=== PATIENT | female | born 1985 | race Native Hawaiian/Other Pacific Islander ===

== ENCOUNTER 2020-10-12 00:35 | Emergency (ER) | payer BC ==
[~2020-10-12] VITALS: Ht 154.9 cm; Wt 81.8 kg
[2020-10-12 01:33] LABS: BASO % 0.4 % (0.0-2.0); EOS # 0.3 (0.0-0.7); EOS % 2.3 % (0-4.0); GRAN # 6.9 (1.4-6.5); HEMATOCRIT 42.5 % (37.0-47.0); HEMOGLOBIN 15.1 g/dl (12.5-16.0); LYMPH # 3.4 (1.2-3.4); LYMPH % 30.1 % (20.0-51.0); MEAN CELL VOLUME 88 fl (80.0-100.0); MEAN CORPUSCULAR HEMOGLOBIN 31 pg (27.0-31.0); MEAN CORPUSCULAR HGB CONC 36 g/dl (33.0-37.0); MEAN PLATELET VOLUME 10.3 fl (7.4-10.4); MONO # 0.7 (0.1-0.6); MONO % 5.9 % (1.7-9.3); PLATELET COUNT 366 K/mm3 (130-400); RED BLOOD COUNT 4.83 M/mm3 (4.10-5.30); REDCELL DISTRIBUTION WIDTH-CV 11.6 % (11.5-14.5)
[2020-10-12 01:41] LABS: PROTHROMBIN TIME 10.5 SECONDS (9.7-12.8)
[2020-10-12 01:45] LABS: ALANINE AMINOTRANSFERASE 22 U/L (4-34); ALBUMIN 4.2 gm/dL (3.5-5.0); ALKALINE PHOSPHATASE 95 U/L (50-136); ANION GAP 9 mmol/L (7-16); AST,SGOT 29 U/L (15-37); BILIRUBIN,TOTAL 0.2 mg/dL (0.0-1.0); BLOOD UREA NITROGEN 19 mg/dL (7-17); CALCIUM 9.7 mg/dL (8.4-10.2); CARBON DIOXIDE 25 mmol/L (22-30); CHLORIDE 100 mmol/L (98-107); CREATININE, serum 0.39 (0.52-1.25); GLUCOSE 350 mg/dL (74-106); POTASSIUM 3.6 mmol/L (3.4-5.0); SODIUM 134 mmol/L (137-145); TOTAL PROTEIN 8.3 gm/dL (6.4-8.2)
[2020-10-12 01:46] LABS: ACETAMINOPHEN < 10 ug/mL (10-30); ALCOHOL(ethanol),MEDICAL < 10 mg/dL; SALICYLATE < 1.0 mg/dL
[2020-10-12 04:33] LABS: COLLECTION METHOD CLEAN CATCH
[2020-10-12 04:41] LABS: MUCOUS Present /lpf; PH 5 (5-8); URINE APPEARANCE Hazy; URINE BACTERIA Rare /hpf; URINE BILIRUBIN Negative (NEGATIVE); URINE BLOOD 2+ (NEGATIVE); URINE COLOR Yellow; URINE GLUCOSE 3+ (NEGATIVE); URINE KETONE Negative (NEGATIVE); URINE LEUKOCYTE ESTERASE Trace (NEGATIVE); URINE NITRATE Positive (NEGATIVE); URINE PROTEIN(semi-quant) 2+ (NEGATIVE); URINE UROBILINOGEN Negative (NEGATIVE)
[2020-10-12 04:47] LABS: TRICYCLIC ANTIDEPRESS URINE NEGATIVE
[2020-10-12 05:00] VITALS: TEMP 98.3
[2020-10-12] MEDS ORDERED: CEPHALEXIN500 M1 PO (05:21)
[2020-10-12 06:25] VITALS: BP 113/76; PULSE 85
== END 2020-10-12 06:25 | disposition home or self-care (01) ==
LOC: COL.ER 00:35
PROVIDERS: Emergency Medicine
DX: T39.1X2A Poisoning by 4-Aminophenol derivatives, intentional self-harm, initial encounter (principal); N39.0 Urinary tract infection, site not specified; E11.9 Type 2 diabetes mellitus without complications; X83.8XXA Intentional self-harm by other specified means, initial encounter
CPT/HCPCS: J2405; J7030

== ENCOUNTER 2021-01-13 15:28 | Emergency (ER) | payer BC ==
[~2021-01-13] VITALS: Ht 152.4 cm; Wt 80.9 kg
[~2021-01-13 15:28] MED LIST: CEPHALEXIN500 M1 PO
[2021-01-13 15:59] LABS: COLLECTION METHOD CLEAN CATCH
[2021-01-13 16:07] LABS: BASO % 0.4 % (0.0-2.0); EOS # 0.3 (0.0-0.7); EOS % 2.9 % (0-4.0); GRAN # 4.6 (1.4-6.5); GRAN % 54.4 % (42.2-75.2); HEMATOCRIT 38.4 % (37.0-47.0); LYMPH % 35.1 % (20.0-51.0); MEAN CELL VOLUME 87 fl (80.0-100.0); MEAN CORPUSCULAR HEMOGLOBIN 32 pg (27.0-31.0); MEAN CORPUSCULAR HGB CONC 37 g/dl (33.0-37.0); MEAN PLATELET VOLUME 10.8 fl (7.4-10.4); MONO # 0.6 (0.1-0.6); PLATELET COUNT 373 K/mm3 (130-400); RED BLOOD COUNT 4.43 M/mm3 (4.10-5.30); REDCELL DISTRIBUTION WIDTH-CV 11.4 % (11.5-14.5)
[2021-01-13 16:15] LABS: PH 7 (5-8); URINE APPEARANCE Clear; URINE BACTERIA Rare /hpf; URINE BILIRUBIN Negative (NEGATIVE); URINE BLOOD 1+ (NEGATIVE); URINE COLOR Straw; URINE GLUCOSE 3+ (NEGATIVE); URINE KETONE Negative (NEGATIVE); URINE LEUKOCYTE ESTERASE Trace (NEGATIVE); URINE NITRATE Negative (NEGATIVE); URINE PROTEIN(semi-quant) 2+ (NEGATIVE); URINE RBC 0-2 /hpf; URINE UROBILINOGEN Negative (NEGATIVE)
[2021-01-13 16:28] LABS: ALANINE AMINOTRANSFERASE 21 U/L (4-34); ALKALINE PHOSPHATASE 104 U/L (50-136); ANION GAP 10 mmol/L (7-16); AST,SGOT 28 U/L (15-37); BILIRUBIN,TOTAL 0.3 mg/dL (0.0-1.0); BLOOD UREA NITROGEN 7 mg/dL (7-17); CARBON DIOXIDE 24 mmol/L (22-30); CHLORIDE 97 mmol/L (98-107); CREATININE, serum 0.38 (0.52-1.25); LIPASE 191 U/L (23-300); POTASSIUM 3.9 mmol/L (3.4-5.0); SODIUM 132 mmol/L (137-145); TOTAL PROTEIN 7.8 gm/dL (6.4-8.2)
[2021-01-13 16:29] LABS: GLUCOSE 433 mg/dL (74-106)
[2021-01-13 16:35] LABS: ACETONE,SERUM NEGATIVE
[2021-01-13] MEDS ORDERED: CEPHALEXIN500 M1 PO (17:25)
[2021-01-13 17:55] VITALS: BP 129/91; PULSE 90; TEMP 97.6
--- NOTE | 2021-01-17 14:21 | NUR ---
Cloth Weaver attempted contact with patient by phone, however her voicemail box is not set up so SW was unable to leave a message.
== END 2021-01-13 17:55 | disposition home or self-care (01) ==
LOC: COL.ER 15:28
PROVIDERS: Physician Assistant
DX: E11.65 Type 2 diabetes mellitus with hyperglycemia (principal); E11.00 Type 2 diabetes mellitus with hyperosmolarity without nonketotic hyperglycemic-hyperosmolar coma (NKHHC); N39.0 Urinary tract infection, site not specified; Z20.822 Contact with and (suspected) exposure to COVID-19
CPT/HCPCS: J1815; J7030

== ENCOUNTER 2022-07-25 17:14 | Emergency (ER) | payer OTHER ==
[~2022-07-25] VITALS: Ht 154.9 cm; Wt 85.9 kg
[2022-07-25 17:19] VITALS: TEMP 98.3
[2022-07-25 18:09] LABS: BASO % 0.4 % (0.0-2.0); EOS # 0.2 K/mm3 (0.0-0.7); EOS % 2.1 % (0.0-4.0); GRAN # 6.8 K/mm3 (1.4-6.5); GRAN % 60.2 % (42.2-75.2); HEMOGLOBIN 12.7 g/dl (12.5-16.0); LYMPH # 3.4 K/mm3 (1.2-3.4); LYMPH % 29.7 % (20.0-51.0); MEAN CELL VOLUME 88 fl (80.0-100.0); MEAN CORPUSCULAR HEMOGLOBIN 31 pg (27-31); MEAN CORPUSCULAR HGB CONC 35 g/dl (33.0-37.0); MEAN PLATELET VOLUME 10.5 fl (7.4-10.4); MONO # 0.8 K/mm3 (0.1-0.6); MONO % 7.2 % (1.7-9.3); PLATELET COUNT 381 K/mm3 (130-400); REDCELL DISTRIBUTION WIDTH-CV 11.5 % (11.5-14.5)
[2022-07-25 18:12] LABS: HEMATOCRIT 36.1 % (37.0-47.0)
[2022-07-25 18:17] LABS: ACETONE,SERUM NEGATIVE
[2022-07-25 18:29] LABS: COLLECTION METHOD CLEAN CATCH
[2022-07-25 18:33] LABS: ALANINE AMINOTRANSFERASE 13 U/L (0-55); ALBUMIN 2.9 gm/dL (3.5-5.0); ALKALINE PHOSPHATASE 86 U/L (40-150); ANION GAP 11 mmol/L (7-16); AST,SGOT 10 U/L (5-34); BILIRUBIN,TOTAL 0.2 mg/dL (0.2-1.2); BLOOD UREA NITROGEN 13 mg/dL (7-19); CALCIUM 9.5 mg/dL (8.4-10.2); CARBON DIOXIDE 22 mmol/L (22-29); CHLORIDE 99 mmol/L (98-107); CREATININE, serum 0.79 mg/dL (0.57-1.11); GLUCOSE 358 mg/dL (70-99); POTASSIUM 3.9 mmol/L (3.5-4.5); SODIUM 132 mmol/L (136-145); TOTAL PROTEIN 7.5 gm/dL (6.2-8.1)
[2022-07-25 18:34] LABS: PH 5.5 (5.0-8.5); URINE APPEARANCE Cloudy (CLEAR/HAZY); URINE COLOR Yellow (YELLOW); URINE GLUCOSE 3+ (NEGATIVE); URINE KETONE Negative (NEGATIVE); URINE NITRATE Positive (NEGATIVE); URINE PROTEIN(semi-quant) 3+ (NEGATIVE); URINE UROBILINOGEN 0.2 E.U/dL (0.2-1.0)
[2022-07-25 18:35] LABS: URINE BLOOD 2+ (NEGATIVE)
[2022-07-25 19:03] LABS: MUCOUS Present (NOT PRESENT); URINE BACTERIA Rare /hpf (NONE SEEN)
[2022-07-25] MEDS ORDERED: CEFTIN 250250 MG/TAB PO (20:12)
[2022-07-25] MEDS ORDERED: GLUCOPHAGE850 MG/TAB PO (20:12)
[2022-07-25 20:26] VITALS: BP 122/76; PULSE 85
[2022-07-25] MEDS ORDERED: FREESTYLE PREC1 EAC5 MC (20:29)
== END 2022-07-25 20:26 | disposition home or self-care (01) ==
LOC: COL.ER 17:14
PROVIDERS: Family Medicine
DX: M79.671 Pain in right foot (principal); M79.89 Other specified soft tissue disorders; E11.9 Type 2 diabetes mellitus without complications; Z87.891 Personal history of nicotine dependence; Z28.310 Unvaccinated for COVID-19; Z91.138 Patient's unintentional underdosing of medication regimen for other reason
CPT/HCPCS: J1815; J7030

== ENCOUNTER 2022-07-30 15:07 | Emergency (ER) | payer OTHER ==
[~2022-07-30] VITALS: Ht 154.9 cm; Wt 85.9 kg
[~2022-07-30 15:07] MED LIST changes: +CEFTIN 250250 MG/TAB PO; +FREESTYLE PREC1 EAC5 MC; +GLUCOPHAGE850 MG/TAB PO
[2022-07-30 15:30] VITALS: TEMP 98.4
[2022-07-30 17:24] LABS: BASO # 0.1 K/mm3 (0.0-0.2); BASO % 0.5 % (0.0-2.0); EOS # 0.2 K/mm3 (0.0-0.7); EOS % 1.1 % (0.0-4.0); GRAN # 11.9 K/mm3 (1.4-6.5); GRAN % 74.4 % (42.2-75.2); HEMATOCRIT 40.8 % (37.0-47.0); HEMOGLOBIN 13.9 g/dl (12.5-16.0); LYMPH # 2.9 K/mm3 (1.2-3.4); LYMPH % 17.9 % (20.0-51.0); MEAN CELL VOLUME 88 fl (80.0-100.0); MEAN CORPUSCULAR HEMOGLOBIN 30 pg (27-31); MEAN CORPUSCULAR HGB CONC 34 g/dl (33.0-37.0); MEAN PLATELET VOLUME 10.6 fl (7.4-10.4); MONO # 0.9 K/mm3 (0.1-0.6); MONO % 5.6 % (1.7-9.3); PLATELET COUNT 430 K/mm3 (130-400); RED BLOOD COUNT 4.62 M/mm3 (4.10-5.30); REDCELL DISTRIBUTION WIDTH-CV 11.4 % (11.5-14.5)
[2022-07-30 17:37] LABS: ALBUMIN 2.9 gm/dL (3.5-5.0); BILIRUBIN,TOTAL 0.2 mg/dL (0.2-1.2); C-REACTIVE PROTEIN 8.33 mg/dL (0.00-0.50); CALCIUM 10.6 mg/dL (8.4-10.2); CREATININE, serum 0.76 mg/dL (0.57-1.11); POTASSIUM 4.2 mmol/L (3.5-4.5); TOTAL PROTEIN 8.4 gm/dL (6.2-8.1)
[2022-07-30] MEDS ORDERED: GLUCOSE TEST ST1 DEV MC (18:05)
[2022-07-30] MEDS ORDERED: BACTRIM DS 8001 TAB PO (18:07)
[2022-07-30 18:24] VITALS: BP 118/70; PULSE 94
== END 2022-07-30 18:24 | disposition home or self-care (01) ==
LOC: COL.ER 15:07
PROVIDERS: Nurse Practitioner Family
DX: E11.9 Type 2 diabetes mellitus without complications (principal); L03.115 Cellulitis of right lower limb; N39.0 Urinary tract infection, site not specified; Z79.84 Long term (current) use of oral hypoglycemic drugs; Z28.310 Unvaccinated for COVID-19

== ENCOUNTER 2022-08-05 14:50 | Inpatient (IN) | payer OTHER ==
[~2022-08-05] VITALS: Ht 152.4 cm; Wt 76.5 kg
[~2022-08-05 14:50] MED LIST changes: +BACTRIM DS 8001 TAB PO; +GLUCOSE TEST ST1 DEV MC
[2022-08-05 16:10] LABS: HEMOGLOBIN 11.9 g/dl (12.5-16.0); MEAN CELL VOLUME 87 fl (80.0-100.0); MEAN CORPUSCULAR HEMOGLOBIN 30 pg (27-31); MEAN CORPUSCULAR HGB CONC 35 g/dl (33.0-37.0); MEAN PLATELET VOLUME 10.9 fl (7.4-10.4); PLATELET COUNT 448 K/mm3 (130-400); RED BLOOD COUNT 3.92 M/mm3 (4.10-5.30); REDCELL DISTRIBUTION WIDTH-CV 11.2 % (11.5-14.5)
[2022-08-05 16:11] LABS: HEMATOCRIT 34.1 % (37.0-47.0)
[2022-08-05 16:28] LABS: ALBUMIN 2.5 gm/dL (3.5-5.0); BILIRUBIN,TOTAL 0.4 mg/dL (0.2-1.2); C-REACTIVE PROTEIN 13.95 mg/dL (0.00-0.50); CALCIUM 9.8 mg/dL (8.4-10.2); CREATININE, serum 0.99 mg/dL (0.57-1.11); POTASSIUM 4.1 mmol/L (3.5-4.5); TOTAL PROTEIN 8.5 gm/dL (6.2-8.1)
[2022-08-05 16:34] LABS: ERYTHROCYTE SEDIMENTATION RATE > 140 mm/hr (0-20)
[2022-08-05 16:53] LABS: BAND 11 % (0-10); LYMPHOCYTE 11 % (20.0-51.0); NEUTROPHILS 72 % (42.0-75.2)
[2022-08-05 16:54] LABS: PLATELET ESTIMATE INCREASED (NORMAL)
[2022-08-05 16:55] LABS: ANISOCYTOSIS 1+
--- NOTE | 2022-08-05 19:13 | NUR ---
RECEIVED REPORT FROM Dakotah IZAGUIRRE, DARLINE. WAITING FOR PATIENT ARRIVAL TO UNIT FOR ADMIT TO ROOM 342.
--- NOTE | 2022-08-05 20:04 | NUR ---
PATIENT TO ROOM FROM E.D. TRANSPORTED BY E.DLogan TECH. PATIENT'S SPOUSE AT BEDSIDE.
[2022-08-05 20:14] VITALS: BP 122/62; PULSE 91; TEMP 98.6
[2022-08-05] MEDS ORDERED: ADVIL200 MG PO (20:21)
[2022-08-05 23:53] VITALS: BP 135/52; PULSE 102; TEMP 97.6
[2022-08-06] VITALS (7 sets, daily range): BP systolic 97–126; BP diastolic 43–63; PULSE 75–97; TEMP 97.7–101
--- NOTE | 2022-08-06 06:45 | NUR ---
PT RESTING IN BED. PT HAS IVF RUNNING. PT DENIES NEEDS AT THIS TIME. PT HAS CALL LIGHT AND INSTRUCTED TO CALL WITH ALL NEEDS.
[2022-08-06 07:02] LABS: HEMOGLOBIN 10.3 g/dl (12.5-16.0); MEAN CELL VOLUME 87 fl (80.0-100.0); MEAN CORPUSCULAR HEMOGLOBIN 30 pg (27-31); MEAN CORPUSCULAR HGB CONC 34 g/dl (33.0-37.0); MEAN PLATELET VOLUME 10.8 fl (7.4-10.4); PLATELET COUNT 418 K/mm3 (130-400); RED BLOOD COUNT 3.49 M/mm3 (4.10-5.30)
--- NOTE | 2022-08-06 07:06 | NUR ---
CHANGE OF SHIFT REPORT GIVEN TO DAY SHIFT DANI. DMITRIY
[2022-08-06 07:07] LABS: C-REACTIVE PROTEIN 14.31 mg/dL (0.00-0.50); CREATININE, serum 0.82 mg/dL (0.57-1.11); POTASSIUM 3.8 mmol/L (3.5-4.5)
[2022-08-06 07:10] LABS: HEMATOCRIT 30.4 % (37.0-47.0)
[2022-08-06 07:33] LABS: HEMOGLOBIN A1C 10.1 %
[2022-08-06 08:41] LABS: BAND 17 % (0-10); EOSINOPHIL 2 % (0-4); LYMPHOCYTE 17 % (20.0-51.0); NEUTROPHILS 58 % (42.0-75.2); PLATELET ESTIMATE NORMAL (NORMAL)
--- NOTE | 2022-08-06 08:55 | NUR ---
SW met with the patient to discuss discharge plan. The patient lives in [place] with her , Sara (ph#[phone]). She reports independence with ADLs and does not have any DME. The patient shares that she has not had a PCP, but had an appointment tomorrow at [facility] to establish care. She obtains her medications from [facility] and reports no difficulties obtaining her meds. The patient does not have a DPOA-HC and she was not interested in completing a DPOA-HC at this time. The patient plans to return home with her upon discharge. No additional needs at this time. *Discharge plan: home with *
--- NOTE | 2022-08-06 09:51 | NUR ---
Initial visit; Patient using phone but stopped to talk briefly with Student Life Dean. Student Life Dean offered God's blessings to which her response was positive.
--- NOTE | 2022-08-06 16:12 | NUR ---
PT HAS A TEMP OF 101. P ON UNIT. DISCUSSED PT, NOTIFIED OF EARLIER LOWER BP, AND CURRENT TEMP. ORDERS RECEIVED TO INCREASE FLUIDS AND CHANGE ZOSYN TO 30MIN INSTEAD OF 4 HOUR.
--- NOTE | 2022-08-06 19:19 | NUR ---
pt resting in bed, family at bedside. reports increased pain after showering, tylenol given. encouraged pt to keep foot elevated for swelling. right foot puncture site w no drainage. vss. LR infusing into left ac IV. pt denies needs at this time. call light in reach.
[2022-08-07] VITALS (13 sets, daily range): BP systolic 102–145; BP diastolic 51–66; PULSE 74–101; TEMP 98.4–102.7
[2022-08-07 07:15] LABS: MEAN CELL VOLUME 88 fl (80.0-100.0); MEAN CORPUSCULAR HGB CONC 34 g/dl (33.0-37.0); PLATELET COUNT 389 K/mm3 (130-400); RED BLOOD COUNT 3.25 M/mm3 (4.10-5.30); REDCELL DISTRIBUTION WIDTH-CV 11.1 % (11.5-14.5)
[2022-08-07 07:17] LABS: HEMATOCRIT 28.5 % (37.0-47.0); HEMOGLOBIN 9.8 g/dl (12.5-16.0); MEAN CORPUSCULAR HEMOGLOBIN 30 pg (27-31)
[2022-08-07 07:22] LABS: CALCIUM 8.9 mg/dL (8.4-10.2); CREATININE, serum 0.65 mg/dL (0.57-1.11); POTASSIUM 3.5 mmol/L (3.5-4.5)
[2022-08-07 07:54] LABS: BAND 11 % (0-10); EOSINOPHIL 1 % (0-4); LYMPHOCYTE 11 % (20.0-51.0); NEUTROPHILS 69 % (42.0-75.2)
[2022-08-07 07:55] LABS: PLATELET ESTIMATE NORMAL (NORMAL)
--- NOTE | 2022-08-07 09:55 | NUR ---
Pt. laying in bed. Pt. is A&OX3, assessment complete. IV to lt. ac patent. Pt. denies pain. 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 Pt. denies further needs, call light within reach.
--- NOTE | 2022-08-07 21:35 | NUR ---
pt resting in bed watching tv, states pain is tolerable at the moment. right foot is elevated on pillows, swelling and bruising present. meds given. pt denies needs. call light in reach.
[2022-08-08] VITALS (13 sets, daily range): BP systolic 108–145; BP diastolic 11–64; PULSE 77–98; TEMP 98.4–100.6
[2022-08-08 06:52] LABS: CALCIUM 8.6 mg/dL (8.4-10.2); CREATININE, serum 0.66 mg/dL (0.57-1.11); POTASSIUM 3.4 mmol/L (3.5-4.5)
[2022-08-08 06:54] LABS: MEAN CELL VOLUME 87 fl (80.0-100.0); MEAN CORPUSCULAR HGB CONC 35 g/dl (33.0-37.0); PLATELET COUNT 380 K/mm3 (130-400); RED BLOOD COUNT 2.84 M/mm3 (4.10-5.30)
[2022-08-08 07:14] LABS: HEMATOCRIT 24.7 % (37.0-47.0); HEMOGLOBIN 8.7 g/dl (12.5-16.0); MEAN CORPUSCULAR HEMOGLOBIN 31 pg (27-31)
--- NOTE | 2022-08-08 07:29 | NUR ---
Vancomycin Initial Dosing Pharmacy Note Ordering provider: Kerrie Whitt MD Indication/duration: Sepsis, 5 days LABS: SCr 0.66, CrCl~91, GFR 115 Recommendation: Will start Vancomycin 1 gm IV q8h. Pharmacy will continue to closely monitor and check a trough on 08/10/22. Maintenance dose: 1 gram every 8 hours Trough goal: 15-20 ug/mL
--- NOTE | 2022-08-08 07:43 | NUR ---
Pt resting in lowered bed with call light in reach
[2022-08-08 08:17] LABS: BAND 6 % (0-10); BASOPHIL 1 % (0-2); EOSINOPHIL 2 % (0-4); LYMPHOCYTE 22 % (20.0-51.0); NEUTROPHILS 63 % (42.0-75.2); PLATELET ESTIMATE NORMAL (NORMAL)
--- NOTE | 2022-08-08 11:33 | NUR ---
Primary nurse notifed of temp 100.6 and BP 145/111
--- NOTE | 2022-08-08 12:40 | NUR ---
reassessed after motrin. temp was 99.6 and pt stated pain was 2/10 in her right foot. no longer complaining of chills.
--- NOTE | 2022-08-08 13:35 | NUR ---
Telehealth visit conducted with Dr. Carson Blackman, Infectious Disease. Patient consented to visit. Patient's present. Telecommunication initiated without any difficulties during exam. All questions were answered by Dr. Blackman
--- NOTE | 2022-08-08 20:00 | NUR ---
PT IN BED, HAS RT FOOT ELEVATED ON PILLOWS. HAD ES TYLENOL PREVIOUSLY FOR DISCOMFORT. RT FOOT WITH DIME SIZE WOUND TO PLANTAR PORTION OF FOOT, REDNESS AND SWELLING OF FOOT NOTED. IVF TO LAC INFUSING WITHOUT PROBLEM.
[2022-08-09] VITALS (13 sets, daily range): BP systolic 105–129; BP diastolic 54–64; PULSE 72–85; TEMP 97.9–102
--- NOTE | 2022-08-09 03:22 | NUR ---
PT GIVEN MOTRIN 400MG PO FOR RT FOOT PAIN.
--- NOTE | 2022-08-09 05:10 | NUR ---
PT RESTING IN BED. SPOUSE AT BEDSIDE. NO CONCERNS VOICED AT THIS TIME. LABS DRAWN.
[2022-08-09 07:01] LABS: MEAN CELL VOLUME 89 fl (80.0-100.0); MEAN CORPUSCULAR HGB CONC 34 g/dl (33.0-37.0); MEAN PLATELET VOLUME 10.8 fl (7.4-10.4); PLATELET COUNT 387 K/mm3 (130-400); RED BLOOD COUNT 2.85 M/mm3 (4.10-5.30); REDCELL DISTRIBUTION WIDTH-CV 11.2 % (11.5-14.5)
[2022-08-09 07:03] LABS: CALCIUM 8.3 mg/dL (8.4-10.2); CREATININE, serum 0.73 mg/dL (0.57-1.11); POTASSIUM 3.4 mmol/L (3.5-4.5)
[2022-08-09 07:06] LABS: HEMATOCRIT 25.3 % (37.0-47.0); HEMOGLOBIN 8.5 g/dl (12.5-16.0); MEAN CORPUSCULAR HEMOGLOBIN 30 pg (27-31)
[2022-08-09 08:00] LABS: BAND 10 % (0-10); EOSINOPHIL 1 % (0-4); LYMPHOCYTE 10 % (20.0-51.0); NEUTROPHILS 70 % (42.0-75.2); PLATELET ESTIMATE NORMAL (NORMAL)
--- NOTE | 2022-08-09 08:00 | NUR ---
PATIENT IS A&O. PRIMARY LANGUAGE IS STATELESS HOWEVER, PATIENT AND SPEAK MICRONESIAN WELL. PATIENT DID HAVE QUESTIONS ABOUT WHAT WBC IS AND PLAN, PATIENT AND PROVIDED EDUCATION. VSS. AFEBRILE AT THIS TIME. IV ABX INFUSING VIA PUMP INTO LEFT AC IV PER ORDERS. RLE POSTERIOR PLANTER WOUND, FROM STEPPING ON TOOTH PICK, IS RED/SWOLLEN/THROBS. PATIENT REFUSES WALKING SHOE DUE TO INCREASE PAIN WITH AMBULATION. GAIT SLOW BUT STEADY. RATES PAIN IN RLE AT 2/10 THIS AM. PRN TYLENOL GIVEN WITH AM MEDS PER PATIENT. AM BS WAS 130, NO SSI REQUIRED. HEAD TO TOE ASSESSMENT COMPLETE. NO OTHER NEEDS AT THIS TIME. CALL LIGHT IN REACH.
--- NOTE | 2022-08-09 13:55 | NUR ---
PATIENT OUT OF SHOWER AND SHORTLY AFTER GETTING OUT REPORTED SHE FELT HOT. TEMP OF 102 AND WAS GIVEN PRN MOTRIN. PATIENT IS SHIVERING. AT BEDSIDE. NO C/O PAIN OR N/V.
--- NOTE | 2022-08-09 14:25 | NUR ---
PATIENT STILL SHIVERING, FEBRILE, GAVE PRN TYLENOL. WILL MONITOR
--- NOTE | 2022-08-09 21:45 | NUR ---
PT'S IV SITE TO LAC OUTDATES, NEW #20 INSYTE TO LFA PLACED ON FIRST ATTEMPT, PT TOLERATES WITHOUT PROBLEM. REMOVED LAC SITE, ANGIOCATH INTACT. IV ANTIBIOTIC INFUSING WITHOUT PROBLEM.
--- NOTE | 2022-08-09 23:06 | NUR ---
PT REPORTS FEELING SHORT OF BREATH, BLOATED AND BACK PAIN. QFJ0=066%, ENCOURAGED SLOW DEEP BREATHING. VSS. MEDICATED WITH MOTRIN 400MG PO AT THIS TIME.
[2022-08-10] VITALS (16 sets, daily range): BP systolic 113–159; BP diastolic 57–83; PULSE 77–100; TEMP 97.5–100
--- NOTE | 2022-08-10 06:00 | NUR ---
PT HAS BEEN NPO SINCE MIDNIGHT. NO FURTHER CONCERNS OF SHORTNESS OF BREATH. IVF TO LFA INFUSING WITHOUT PROBLEM.
[2022-08-10 07:18] LABS: MEAN CELL VOLUME 89 fl (80.0-100.0); MEAN CORPUSCULAR HGB CONC 34 g/dl (33.0-37.0); MEAN PLATELET VOLUME 10.2 fl (7.4-10.4); PLATELET COUNT 383 K/mm3 (130-400); RED BLOOD COUNT 2.89 M/mm3 (4.10-5.30); REDCELL DISTRIBUTION WIDTH-CV 11.4 % (11.5-14.5)
[2022-08-10 07:19] LABS: HEMATOCRIT 25.7 % (37.0-47.0); HEMOGLOBIN 8.7 g/dl (12.5-16.0); MEAN CORPUSCULAR HEMOGLOBIN 30 pg (27-31)
[2022-08-10 07:39] LABS: CALCIUM 8.1 mg/dL (8.4-10.2); CREATININE, serum 1.36 mg/dL (0.57-1.11); POTASSIUM 3.5 mmol/L (3.5-4.5)
--- NOTE | 2022-08-10 07:56 | NUR ---
Vancomycin Follow-up Pharmacy Note Current regimen: VANCOMYCIN 1G Q8H Vancomycin trough: 26 Adjustments: SCR INCREASED TO 1.4, CrCl ~45. DECREASE TO VANC 1.25G Q24H STARTING 08/11. TROUGH CLINICALLY INDICATED
[2022-08-10 07:59] LABS: BAND 4 % (0-10); EOSINOPHIL 3 % (0-4); LYMPHOCYTE 15 % (20.0-51.0); NEUTROPHILS 72 % (42.0-75.2); PLATELET ESTIMATE NORMAL (NORMAL)
--- NOTE | 2022-08-10 09:20 | NUR ---
PATIENT BACK IN ROOM FROM OR. VERY DROWSY, ARROUSES BRIEFLY AND THEN FALLS BACK TO SLEEP. VSS. 02 @ 2L PER NC WITH SATS IN MID 90'S. PATIENT APPEARS TO BE COMFORTABLE. DSG TO RLE FOOT IS CD&I WITH ACEWRAP. SCD'S TO BLE. IV ABX INFUSING, SEE MAR. LIQUIDS AT BEDSIDE. HEAD TO TOE ASSESSMENT WNL. GONE AND WILL RETURN LATER. PATIENT RESTING WITH CALL LIGHT IN REACH.
--- NOTE | 2022-08-10 10:30 | NUR ---
PATIENT C/O FEELING COLD AND SHIVERING. NOTED TEMP OF 99.4. GAVE PRN TYLENOL. AT BEDSIDE. ENCOURAGED FLUIDS.
--- NOTE | 2022-08-10 20:34 | NUR ---
PT ASKING FOR MOTRIN. MEDICATED WITH NORCO 1 TAB FOR RT FOOT PAIN. HAS DRSG D/I TO RT FOOT, ELEVATED ON PILLOWS. IVF TO LFA INFUSING WITHOUT PROBLEM. IS ALERT AND ORIENTED X4. SPOUSE AT BEDSIDE.
[2022-08-11] VITALS (12 sets, daily range): BP systolic 118–138; BP diastolic 52–71; PULSE 84–94; TEMP 98.5–99.6
--- NOTE | 2022-08-11 04:00 | NUR ---
IV ANTIBIOTIC CONNECTED. OFFERED PT [place] FOR RT FOOT, DENIES NEED AT THIS TIME.
[2022-08-11 05:57] LABS: MEAN CELL VOLUME 91 fl (80.0-100.0); MEAN CORPUSCULAR HGB CONC 33 g/dl (33.0-37.0); MEAN PLATELET VOLUME 10.2 fl (7.4-10.4); PLATELET COUNT 390 K/mm3 (130-400); RED BLOOD COUNT 2.66 M/mm3 (4.10-5.30); REDCELL DISTRIBUTION WIDTH-CV 11.7 % (11.5-14.5)
[2022-08-11 06:10] LABS: HEMATOCRIT 24.1 % (37.0-47.0); MEAN CORPUSCULAR HEMOGLOBIN 30 pg (27-31)
--- NOTE | 2022-08-11 06:15 | NUR ---
RUEL MARIE AWARE OF WBC=23.9. DRSG CHANGE DONE BY RUEL MARIE AT THIS TIME.
[2022-08-11 06:27] LABS: CALCIUM 7.6 mg/dL (8.4-10.2); CREATININE, serum 1.39 mg/dL (0.57-1.11); POTASSIUM 3.7 mmol/L (3.5-4.5)
[2022-08-11 07:28] LABS: BAND 14 % (0-10); EOSINOPHIL 1 % (0-4); LYMPHOCYTE 7 % (20.0-51.0); NEUTROPHILS 71 % (42.0-75.2)
[2022-08-11 07:29] LABS: PLATELET ESTIMATE NORMAL (NORMAL)
--- NOTE | 2022-08-11 11:16 | NUR ---
PT IS A&OX3; QUIET AND RESERVED; C/O ABD DISTENTION/BLOATING AND REPORTS SHE HAS NOT HAD A BM IN DAYS; DULCOLAX SUPPOSITORY ORDERED BUT PT WANTS NURSE TO WAIT AND ADMINISTER ONCE HER RETURNS; PT IS INDEPENDENT IN ROOM WITHOUT ISSUE.
[2022-08-11 12:37] LABS: COLLECTION METHOD CLEAN CATCH
[2022-08-11 12:46] LABS: PH 5.5 (5.0-8.5); URINE APPEARANCE Clear (CLEAR/HAZY); URINE BLOOD TRACE-LYSED (NEGATIVE); URINE COLOR Yellow (YELLOW); URINE GLUCOSE Negative (NEGATIVE); URINE KETONE Negative (NEGATIVE); URINE NITRATE Negative (NEGATIVE); URINE PROTEIN(semi-quant) 2+ (NEGATIVE)
[2022-08-11 12:47] LABS: SQUAMOUS EPITHELIAL 0-2 /hpf (0-10); URINE BACTERIA None Seen /hpf (NONE SEEN); URINE RBC 0-2 /hpf (0-2)
[2022-08-12] VITALS (11 sets, daily range): BP systolic 128–149; BP diastolic 54–80; PULSE 58–83; TEMP 97.9–98.8
[2022-08-12 06:50] LABS: BASO # 0.1 K/mm3 (0.0-0.2); BASO % 0.4 % (0.0-2.0); EOS # 0.3 K/mm3 (0.0-0.7); EOS % 1.8 % (0.0-4.0); GRAN # 14.5 K/mm3 (1.4-6.5); LYMPH # 2.1 K/mm3 (1.2-3.4); LYMPH % 11.1 % (20.0-51.0); MEAN CELL VOLUME 91 fl (80.0-100.0); MEAN CORPUSCULAR HGB CONC 33 g/dl (33.0-37.0); MEAN PLATELET VOLUME 10.3 fl (7.4-10.4); MONO # 1.4 K/mm3 (0.1-0.6); MONO % 7.4 % (1.7-9.3); PLATELET COUNT 398 K/mm3 (130-400); RED BLOOD COUNT 2.49 M/mm3 (4.10-5.30); REDCELL DISTRIBUTION WIDTH-CV 11.8 % (11.5-14.5)
[2022-08-12 06:51] LABS: HEMATOCRIT 22.7 % (37.0-47.0); HEMOGLOBIN 7.5 g/dl (12.5-16.0); MEAN CORPUSCULAR HEMOGLOBIN 30 pg (27-31)
[2022-08-12 07:04] LABS: CALCIUM 7.7 mg/dL (8.4-10.2); CREATININE, serum 1.31 mg/dL (0.57-1.11); POTASSIUM 3.6 mmol/L (3.5-4.5)
--- NOTE | 2022-08-12 10:18 | NUR ---
PT A&OX3; STILL C/O ABD FULLNESS/DISCOMFORT; DR. CAMPBELL CONSULTED AND ABD ULTRASOUND DONE THIS MORNING. PAIN MEDICATIONS OFFERED BUT REFUSED BY PT
--- NOTE | 2022-08-12 15:20 | NUR ---
Telehealth visit conducted with Dr. Carson Blackman, Infectious Disease. Patient consented to visit. Telecommunication initiated without any difficulties during exam. All questions were answered by Dr. Blackman
--- NOTE | 2022-08-12 20:00 | NUR ---
PATIENT IS A&O. VSS. C/O BACK PAIN AND RLE PAIN. GAVE PRN NORCO WITH HS MEDS. CLEAR LIQUID DIET. IV FLUIDS INFUSING VIA PUMP INTO LEFT FORARM IV. RLE DSG IS CD&I WITH ACEWRAP. KNEE SCOOTER USED, PT/OT CONSULTED. SCD'S TO BLE. HEAD TO TOE ASSESSMENT COMPLETE. AT BEDSIDE. NO OTHER NEEDS AT THIS TIME. CALL LIGHT IN REACH.
[2022-08-13] VITALS (13 sets, daily range): BP systolic 113–169; BP diastolic 55–76; PULSE 70–88; TEMP 97.9–100.8
[2022-08-13 06:58] LABS: MEAN CELL VOLUME 92 fl (80.0-100.0); MEAN CORPUSCULAR HGB CONC 33 g/dl (33.0-37.0); MEAN PLATELET VOLUME 10.1 fl (7.4-10.4); PLATELET COUNT 442 K/mm3 (130-400); RED BLOOD COUNT 2.46 M/mm3 (4.10-5.30); REDCELL DISTRIBUTION WIDTH-CV 11.6 % (11.5-14.5)
[2022-08-13 07:02] LABS: HEMATOCRIT 22.6 % (37.0-47.0); HEMOGLOBIN 7.4 g/dl (12.5-16.0); MEAN CORPUSCULAR HEMOGLOBIN 30 pg (27-31)
--- NOTE | 2022-08-13 07:03 | NUR ---
LAB CALLED CRITICAL RESULT DURING SHIFT REPORT, WBC OF 20.5. WBC YESTERDAY WAS 18.6. REPORT GIVEN TO DMITRIY KAMINSKI AND WILL REPORT CRITICAL LAB
[2022-08-13 07:19] LABS: CALCIUM 7.7 mg/dL (8.4-10.2); CREATININE, serum 1.06 mg/dL (0.57-1.11); POTASSIUM 3.7 mmol/L (3.5-4.5)
[2022-08-13 07:51] LABS: BAND 12 % (0-10); BASOPHIL 1 % (0-2); EOSINOPHIL 2 % (0-4); HYPOCHROMIA 1+; LYMPHOCYTE 11 % (20.0-51.0); NEUTROPHILS 71 % (42.0-75.2); PLATELET ESTIMATE INCREASED (NORMAL)
--- NOTE | 2022-08-13 10:00 | NUR ---
Pt. sitting up in bed. Pt. is A&OX3, assessment complete. INT lt. forearm patent. Pt. denies pain. Dressing to rt. foot CDI. Pt. denies further needs, call light within reach.
--- NOTE | 2022-08-13 19:49 | NUR ---
PT SITTING ON BED. FLAT AFFECT. QUIET VOICE. REVIEWED MARC'S PLAN OF CARE. GOAL: TO AMB IN [place] X2 WITH STAFF. PT AGREEBLE. REVIEWED POTENTIAL COMPLICATIONS (PNEUMONIA, DVT) PREVENTATIVE MEASURES REVIEWD WITH PT. TEMP BACK DOWN TO 98.8 NOW. LACTATION CONSULTANT HERE TO TAKE PT FOR WALK.
--- NOTE | 2022-08-13 21:00 | NUR ---
PT ASK IF THE DOCTORS FOUND OUT ANYTHING CAUSING HER ABD DISTENTION. PT C/O CONTINUED BLOATING. ABD VERY DISTENDED. HYPOACTIVE BS. HAD SMALL BM YESTERDAY. NO NAUSEA. REVIEWED IMPORTANCE OF ACTIVITY. WILL HAVE DAY SHIFT RN F/U IN AM WITH DR AND PTS CONCERN FOR RESULTS.
--- NOTE | 2022-08-13 21:59 | NUR ---
PT AND BASE FILLER OPERATOR WENT ON 2ND WALK IN [place].
[2022-08-14 00:10] VITALS: BP_SYST 132
[2022-08-14 04:15] VITALS: BP 157/69; PULSE 78; TEMP 98.6
[2022-08-14 04:23] VITALS: BP_SYST 157
[2022-08-14 07:03] LABS: MEAN CELL VOLUME 88 fl (80.0-100.0); MEAN CORPUSCULAR HGB CONC 34 g/dl (33.0-37.0); MEAN PLATELET VOLUME 9.8 fl (7.4-10.4); PLATELET COUNT 440 K/mm3 (130-400); RED BLOOD COUNT 2.58 M/mm3 (4.10-5.30); REDCELL DISTRIBUTION WIDTH-CV 11.6 % (11.5-14.5)
[2022-08-14 07:05] LABS: HEMATOCRIT 22.8 % (37.0-47.0); HEMOGLOBIN 7.8 g/dl (12.5-16.0); MEAN CORPUSCULAR HEMOGLOBIN 30 pg (27-31)
[2022-08-14 07:24] VITALS: BP 135/61; PULSE 73; TEMP 98.3
[2022-08-14 07:26] LABS: CALCIUM 7.9 mg/dL (8.4-10.2); CREATININE, serum 1.16 mg/dL (0.57-1.11); POTASSIUM 3.8 mmol/L (3.5-4.5)
--- NOTE | 2022-08-14 07:33 | NUR ---
Pt resting in lowered bed with call light in reach. dorothy montanez.
[2022-08-14 07:58] LABS: BAND 16 % (0-10); EOSINOPHIL 1 % (0-4); LYMPHOCYTE 12 % (20.0-51.0); METAMYELOCYTE 1 % (0-0); MYELOCYTE 4 % (0-0); NEUTROPHILS 54 % (42.0-75.2); PLATELET ESTIMATE INCREASED (NORMAL)
[2022-08-14 08:00] VITALS: BP_SYST 135
[2022-08-14] MEDS ORDERED: MONODOX100 PO (09:14)
[2022-08-14] MEDS ORDERED: CIPRO 500MG TA500 MG PO (09:14)
[2022-08-14] MEDS ORDERED: FLAGYL500 MG PO (09:15)
[2022-08-14] MEDS ORDERED: PROTONIX 40MG T40 MG PO (09:16)
[2022-08-14] MEDS ORDERED: GLUCOSE TEST ST1 DEV MC (09:17)
[2022-08-14] MEDS ORDERED: LEVEMIR FLEX100 U/ML SQ ×2 (09:18)
[2022-08-14] MEDS ORDERED: BD ALCOHOL1 SWA MC (09:18)
[2022-08-14] MEDS ORDERED: INSULIN PEN NE1 EAC1 MC (09:18)
[2022-08-14] MEDS ORDERED: LANCETS MC (09:18)
--- NOTE | 2022-08-14 11:34 | NUR ---
Air Quality Instrument Specialist collaborated with treatment team at bedside to assess for discharge planning and needs. Medical team reports Patient medically cleared for discharge. Patient requests knee walker for ambulating to the restroom. IVETTE contacted [facility] to inquire about the proce of a knee walker. [facility] reports that it will cost Patient 5 dollars per month to rent and ~100 dollars to purchase. Patient approved the request for rental. IVETTE contacted Dr. Whitt who assisted IVETTE with completing DME order form. IVETTE faxed DME order for with clinical packet to [facility]. On follow-up, [facility] reports to have the knee walker ready and will deliver to Patient room.
[2022-08-14 11:45] VITALS: BP 168/77; PULSE 80; TEMP 99.6
--- NOTE | 2022-08-14 13:45 | NUR ---
Pt. ready to discharge. INT discontinued from lt. forearm. Pt. given discharge packet. Education reviewed with the pt. Pt. voices understanding. Reviewed, meds, and f/u appointments. Informed pt. of where to picker tender helper insulin pen. Pt. voices understanding. Pt. dressed and escorted out by [employer] SALES ENGINEER.
--- NOTE | 2022-08-14 14:58 | NUR ---
IVETTE contacted [facility] in reference to Patient's need for insulin pen. [employer] provided SW with the duenas $445.87. IVETTE completed Rx voucher with Patient and submitted to [facility]. IVETTE informed CYNTHIA Ibrahim of the change in pharmacy for the insulin. Rx was electrinically sent to [facility]. IVETTE informed Patient that her insulin will need to be picked up with her voucher at [facility], all other medications needing picked up at [facility] in [place], [place].
== END 2022-08-14 13:30 | disposition home or self-care (01) | DRG 854 ==
LOC: COL.ER 14:50 → SURG 17:29
PROVIDERS: Internal Medicine; Orthopaedic Surgery; Physician Assistant; ADMIT Internal Medicine
PROC: 0JDQ0ZZ Extraction of Right Foot Subcutaneous Tissue and Fascia, Open Approach (ICD-10-PCS; 2022-08-10)
PROC: 0J9Q00Z Drainage of Right Foot Subcutaneous Tissue and Fascia with Drainage Device, Open Approach (ICD-10-PCS; principal; 2022-08-10 08:00)
DX: A41.9 Sepsis, unspecified organism (principal); E87.1 Hypo-osmolality and hyponatremia; N17.9 Acute kidney failure, unspecified; L03.115 Cellulitis of right lower limb; E87.20 Acidosis, unspecified; J98.11 Atelectasis; L02.611 Cutaneous abscess of right foot; T38.3X6A Underdosing of insulin and oral hypoglycemic [antidiabetic] drugs, initial encounter; E11.9 Type 2 diabetes mellitus without complications; K29.70 Gastritis, unspecified, without bleeding; Z79.84 Long term (current) use of oral hypoglycemic drugs; Z79.899 Other long term (current) drug therapy; Z91.138 Patient's unintentional underdosing of medication regimen for other reason; Z91.148 Patient's other noncompliance with medication regimen for other reason
CPT/HCPCS: J0696; J1170; J1644; J1815; J2405; J2543; J2704; J3010; J3370; J7030; J7050; J7120

== ENCOUNTER 2022-08-21 06:23 | Day surgery (SDC) | payer OTHER ==
[2022-08-21] VITALS (7 sets, daily range): BP systolic 110–161; BP diastolic 61–87; PULSE 70–86; TEMP 97–98
[~2022-08-21] VITALS: Ht 152.4 cm; Wt 76.5 kg
[~2022-08-21 06:23] MED LIST changes: +ADVIL200 MG PO; +BD ALCOHOL1 SWA MC; +CIPRO 500MG TA500 MG PO; +FLAGYL500 MG PO; +INSULIN PEN NE1 EAC1 MC; +LANCETS MC; +LEVEMIR FLEX100 U/ML SQ; +MONODOX100 PO; +PROTONIX 40MG T40 MG PO
[2022-08-21 07:00] LABS: BASO # 0.1 K/mm3 (0.0-0.2); BASO % 0.6 % (0.0-2.0); EOS % 0.2 % (0.0-4.0); GRAN # 10.4 K/mm3 (1.4-6.5); GRAN % 73.1 % (42.2-75.2); HEMOGLOBIN 11.7 g/dl (12.5-16.0); LYMPH # 2.7 K/mm3 (1.2-3.4); LYMPH % 18.7 % (20.0-51.0); MEAN CELL VOLUME 86 fl (80.0-100.0); MEAN CORPUSCULAR HEMOGLOBIN 30 pg (27-31); MEAN CORPUSCULAR HGB CONC 34 g/dl (33.0-37.0); MEAN PLATELET VOLUME 9.9 fl (7.4-10.4); MONO % 6.8 % (1.7-9.3); PLATELET COUNT 540 K/mm3 (130-400); RED BLOOD COUNT 3.96 M/mm3 (4.10-5.30); REDCELL DISTRIBUTION WIDTH-CV 11.5 % (11.5-14.5)
--- NOTE | 2022-08-21 09:34 | NUR ---
Pt returned from OR drowsy though VSS, brought to bedside, R foot with SCARLET bandage and CDI; to await for pt to awake more to give PO oral intake and titrate down O2.
--- NOTE | 2022-08-21 09:52 | NUR ---
Postop blood sugar was 238.
--- NOTE | 2022-08-21 09:53 | NUR ---
5L oxy mask removed, pt satting well on room air.
== END 2022-08-21 09:45 | disposition home or self-care (01) ==
LOC: SDCO 06:23
PROVIDERS: Orthopaedic Surgery
DX: L02.611 Cutaneous abscess of right foot (principal); Z28.310 Unvaccinated for COVID-19; Z87.891 Personal history of nicotine dependence; Z79.899 Other long term (current) drug therapy
CPT/HCPCS: J0690; J2250; J2405; J2704; J2795; J3010; J7120